=== PATIENT | female | born 1955 | race Caucasian/White ===

== ENCOUNTER 2020-05-29 20:29 | Inpatient (IN) ==
[~2020-05-29] VITALS: Ht 167.6 cm; Wt 94.8 kg
[~2020-05-29 20:29] MED LIST: HYDR200T72 PO; LEVO112T5 PO; PRED5TAB17 PO
[2020-05-29] MEDS ORDERED: ZOFRAN IV STA (20:41)
[2020-05-29] MEDS ORDERED: LOMOTIL PO STA (20:41)
[2020-05-29] MEDS ORDERED: NS 1000ML 1,000 ML IV STA (20:41)
--- NOTE | 2020-05-29 20:48 | ER.PDOC ---
General Chief Complaint: Requesting Medical Care Stated Complaint: RESP DISTRESS Time seen by MD: 20:41 Source: patient, EMS Exam Limitations: no limitations History of Present Illness Initial Comments Patient diagnosed with COVID19 this week. Today she has felt increasingly SOB and had n/v/d. Subjective fever at home as well. Timing/Duration: 1 week (progressively worsening) Severity: moderate Activities at Onset: rest Prior Episodes/Possible Cause: illness exposure (patient tested + for COVID 19 this week) Associated Symptoms: cough, other (nausea, vomiting, diarrhea) Prior symptoms/Treatment: Recenly Seen Allergies: Coded Allergies: clindamycin (Verified Allergy, Unknown, RED RASH, 01/02/16) Home Meds Reported Medications Levothyroxine Sodium (LEVOTHYROXINE SODIUM) 112 Mcg Tablet, 1 TAB PO DAILY, #30 TAB 5 Refills 01/02/16 Hydroxychloroquine Sulfate (PLAQUENIL) 200 Mg Tablet, 200 MG PO BID, TABLET 01/02/16 Prednisone (PREDNISONE) 5 Mg Tab.ds.pk, 5 MG PO DAILY 01/02/16 Past Medical History Medical History: other (rheumatoid arthritis) Surgical History: cholecystectomy, hysterectomy Family History Significant Family History: no pertinent family hx Social History Smoking: non-smoker Alcohol Use: none Drug Use: none Review of Systems Constitutional: fever, malaise EENTM: no symptoms reported Respiratory: cough, shortness of breath Cardiovascular: no symptoms reported Gastrointestinal: diarrhea, nausea, vomiting Genitourinary: no symptoms reported Musculoskeletal: no symptoms reported Skin: no symptoms reported Psychiatric/Neurological: no symptoms reported Endocrine: no symptoms reported Hematologic/Lymphatic: no symptoms reported All Other Systems: Reviewed and Negative Physical Exam General Appearance: Mild Distress (patient arrives by EMS covered in feces from watery stool enroute) HEENT: PERRL/EOMI, Normal ENT Inspection Neck: Non-Tender, Full Range of Motion, Supple (no meningismus) Respiratory: no accessory muscle use, rhonchi, other (tachypnea 34 Resp per minute) Cardiovascular: Regular Rate, Rhythm (93 BPM), No Murmur Gastrointestinal: Non Tender, Hyperactive bowel sounds, Soft Extremities: No Pedal Edema, No Calf Tenderness Neurologic/Psychiatric: Alert, Normal Mood/Affect, Oriented x 3 Skin: Normal Color, Warm/Dry Lymphatic: No Adenopathy Results/Orders Results/Orders Orders - HAIR,MICHELLE O DO Cbc With Auto Diff (05/29/20 20:41) Comprehensive Metabolic Panel (05/29/20 20:41) Creatine Kinase (05/29/20 20:41) Creatine Kinase Mb (05/29/20 20:41) Probnp B-Type [employer] Press Operator (05/29/20 20:41) Troponin I (05/29/20 20:41) D-Dimer (05/29/20 20:41) Blood Culture (05/29/20 20:41) Xr Chest 1v (05/29/20 20:41) PT (05/29/20 20:41) Partial Thromboplastin Time. (05/29/20 20:41) Ekg-Routine (05/29/20 20:41) Saline Lock (05/29/20 20:41) Ferritin(Ml) (05/29/20 20:41) Lactate Dehydrogenase (05/29/20 20:41) C-Reactive Protein (05/29/20 20:41) Lactic Acid(Ml) (05/29/20 20:41) 0.9 % Sodium Chloride (Ns 1000ml) (05/29/20 20:41) Diphenoxylate Hcl/Atropine (Lomotil) (05/29/20 20:41) Ondansetron Hcl/Pf (Zofran) (05/29/20 20:41) Venous Blood Gas (05/29/20 21:58) Vital Signs Date Time Temp Pulse Resp B/P (MAP) Pulse Ox O2 Delivery O2 Flow Rate FiO2 05/29/20 22:00 100.2 92 20 107/55 (72) 97 Nasal Canula 3.00 05/29/20 20:52 100.2 98 20 97 05/29/20 20:52 100.2 98 20 05/29/20 20:52 100.2 98 20 110/74 (86) 97 Nasal Canula 3.00 Administered Medications Medications (Trade) Dose Ordered Sig/Ihsan Route PRN Reason Start Time Stop Time Status Last Admin Dose Admin Diphenoxylate HCl/ Atropine (Lomotil) 2 each STAT STAT PO 05/29/20 20:41 05/29/20 20:42 UNV 05/29/20 21:32 2 EACH Ondansetron HCl (Zofran) 4 mg STAT STAT IV 05/29/20 20:41 05/29/20 20:42 UNV 05/29/20 21:32 4 MG Sodium Chloride 1,000 ml @ 1,200 mls/hr Q50M STAT IV 05/29/20 20:41 05/29/20 21:30 UNV 05/29/20 21:32 1,200 MLS/HR Laboratory Tests Test 05/29/20 21:00 White Blood Count 2.9 10^3/uL (4.5-11.0) L Red Blood Count 4.70 10^6/uL (4.00-5.20) Hemoglobin 14.5 g/dL (12.0-15.0) Hematocrit 42.6 % (36.0-46.0) Mean Corpuscular Volume 90.6 fL (78-100) Mean Corpuscular Hemoglobin 30.9 pg (26-34) Mean Corpuscular Hemoglobin Concent 34.0 g/dL (33-36.5) Red Cell Distribution Width 14.1 % (11.5-14.5) Platelet Count 153 10^3/uL (150-400) Mean Platelet Volume 10.2 fL (7.8-11.0) Neutrophils (%) (Auto) 76.2 % (41.0-85.0) Lymphocytes (%) (Auto) 10.2 % (24.0-44.0) L Monocytes (%) (Auto) 11.9 % (5.0-12.0) Neutrophils # (Auto) 2.2 10^3/uL (1.8-7.7) Lymphocytes # (Auto) 0.30 10^3/uL1 (1.0-4.8) L Monocytes # (Auto) 0.4 10^3/uL (0.3-0.8) Absolute Immature Granulocyte (auto 0.03 10^3 u/L (0-2) Absolute Eosinophils (auto) 0.0 10^3/uL (0.0-0.2) Immature Granulocytes % 1.00 % (0.00-0.50) H Eosinophils % 0.0 % (0.0-5.0) Basophils % 0.7 % (0.0-0.2) H Basophils # 0.0 10^3/uL (0.0-0.1) Prothrombin Time 20.6 SEC (9.3-11.3) H Prothrombin Time INR (Non-Therap) 2.0 Activated Partial Thromboplast Time 24.5 SEC (24.67-30.72) D-Dimer 1.69 mg/L (0.19-0.49) *H Sodium Level 136 mmol/L (132-145) Potassium Level 3.9 mmol/L (3.6-5.2) Chloride Level 102.0 mmol/L (96-109) Carbon Dioxide Level 22.7 mmol/L (20.0-32) Anion Gap 15.2 Blood Urea Nitrogen 23 mg/dL (7-18) H Creatinine 1.02 mg/dL (0.59-1.40) Estimated GFR () 65.6 (>/=60) Est GFR (CKD-EPI)(Non-Afr [place]an) 54.2 (>/=60) BUN/Creatinine Ratio 22.0 Glucose Level 85 mg/dL (70-110) Lactic Acid Level 1.3 mmol/L (0.5-1.9) Calcium Level 8.6 mg/dL (8.4-10.5) Ferritin 860 ng/mL (8-252) H Total Bilirubin 0.8 mg/dL (0.2-1.0) Aspartate Amino Transferase (AST) 59 U/L (0-35) H Alanine Aminotransferase (ALT) 29 U/L (12-78) Alkaline Phosphatase 73 U/L (50-136) Lactate Dehydrogenase 409 U/L (81-234) H Total Creatine Kinase 112 U/L (26-192) Creatine Kinase MB 1.5 ng/mL (0.5-3.6) Troponin I 0.17 ng/mL (0.00-0.05) H C-Reactive Protein 1.63 mg/dL (0.00-5.00) Pro-B-Type Natriuretic Peptide 1435 pg/mL (0-125) H Total Protein 6.8 g/dL (6.4-8.2) Albumin 3.2 g/dL (3.4-5.0) L Globulin 3.6 Albumin/Globulin Ratio 0.888 Progress Progress EKG: NSR, Ventricular rate 97, RBBB, LAFB, QT 406, No STT changes WBC reduced 2.9, Lactate WNL, LDH 409, Ferritin 860, BNP 1435, Trop 0.17, CRP 1.63 Patient has not c/o any chest discomfort--I believe her troponin elevation is a reflection of COVID19 disease marker (see ncbi.nlm.nih.gov/pmc/articles) Consult/PCP Time Consult/PCP Called: 22:36 Consult/PCP: DR. Ortega Reason/Comments: will admit ER DEPART Departure Time of Disposition: 22:39 Disposition: 09 ADMITTED INPATIENT Impression: Primary Impression: 2019 novel coronavirus disease (COVID-19) Additional Impressions: Hypoxia Diarrhea Elevated troponin I level Condition: Improved Referrals: [facility] (PCP) PRIMARY CARE PROVIDER Duration or Time Spent with Pa: 25 min Problem Qualifiers Additional Impressions: Diarrhea Diarrhea type: unspecified type Qualified Codes: R19.7 - Diarrhea, unspecified MICHELLE HAIR DO May 29, 2020 20:48
[2020-05-29 20:52] VITALS: BP 110/74
[2020-05-29 22:00] VITALS: BP 107/55
--- NOTE | 2020-05-29 22:06 | PCM.EKG ---
[facility] Test Date: 2020-05-29 Test Time: 21:45:53 Pat Name: DOTTIE LAI Department: Room: 304 Gender: F Forge Operator: TG : [id number] Requested By: MICHELLE ALMENDAREZ Order Number: [id number] Reading MD: Eusebia Almendarez Measurements Intervals [place] Rate: 97 P: 34 DC: 180 QRS: -52 QRSD: 128 T: QT: 406 QTc: 516 Interpretive Statements Sinus rhythm Atrial premature complex RBBB and LAFB Nonspecific T abnormalities, lateral leads Compared to ECG 07/18/2018 11:27:22 Atrial premature complex(es) now present Left anterior fascicular block now present Right bundle-branch block now present Left-axis deviation no longer present T-wave abnormality still present Electronically Signed On 05-30-2020 19:08:51 CDT by Eusebia Almendarez Please click the below link to view image of tracing.
[2020-05-29 22:11] LABS: CALCIUM 8.6 mg/dL (8.4-10.5); CARBON DIOXIDE 22.7 mmol/L (20.0-32)
--- NOTE | 2020-05-29 22:16 | NUR ---
D-DIMER 1.69, EDP NOTIFIED
[2020-05-29 22:17] LABS: BASOPHIL % 0.7 % (0.0-0.2); LYMPHOCYTES % 10.2 % (24.0-44.0); MEAN CORP HGB 30.9 pg (26-34); MONOCYTES # 0.4 10^3/uL (0.3-0.8); MONOCYTES % 11.9 % (5.0-12.0); NEUTROPHIL # 2.2 10^3/uL (1.8-7.7); NEUTROPHILS % 76.2 % (41.0-85.0); PLATELET COUNT 153 10^3/uL (150-400); RED CELL DISTRIBUTION WIDTH 14.1 % (11.5-14.5)
[2020-05-29] MEDS ORDERED: ROCEPHIN ONE (22:40)
[2020-05-29] MEDS ORDERED: SOLU-MEDROL ONE (22:40)
[2020-05-29] MEDS ORDERED: SOLU-MEDROL IV STA (22:43)
[2020-05-29] MEDS: ROCEPHIN 1,000 MG in NS 100ML 100 ML IV SCH (22:57)
[2020-05-29 23:00] VITALS: BP 122/69
[2020-05-29] MEDS ORDERED: LOMOTIL PO PRN (23:00)
[2020-05-29] MEDS ORDERED: ZOFRAN IV PRN (23:00)
[2020-05-29 23:20] VITALS: BP 107/74
--- NOTE | 2020-05-29 23:40 | NUR ---
Received pt from the ED via stretcher. Assisted pt over to the bed. Pt complaining of generalized pain. Obtained order for Tylenol 1 gram every 6 hours as needed for pain and temp. Pt received Tylenol for generalized pain and temp 100.6. Admission completed. Pt's needs were met. Will cont to monitor.
[2020-05-30] MEDS ORDERED: BICILLIN L-A IM ONE (00:37)
[2020-05-30] MEDS: TYLENOL PO PRN ×2 (00:40→18:06)
[2020-05-30 04:00] VITALS: BP 121/85
--- NOTE | 2020-05-30 04:08 | DIREP ---
PROCEDURE:CHEST 1 VIEW COMPARISON:[facility], CR, XRAY CHEST SINGLE VW, 07/18/2018, 11:00 AM. INDICATIONS:dyspnea FINDINGS: LUNGS/PLEURA:Mild reticulonodular opacities in the bilateral upper lobes, which may be secondary to mild infectious or inflammatory pneumonitis. No dense airspace consolidation. No pleural effusion or pneumothorax. Stable mild elevation of the right hemidiaphragm. VASCULATURE:Normal. Unremarkable pulmonary vasculature. CARDIAC:Heart size is normal. MEDIASTINUM:Normal. No visible mass or adenopathy. BONES:Stable remote, healed, left-sided rib fractures. Stable degenerative changes involving the shoulders and thoracic spine. No acute abnormality. OTHER:Stable surgical clips in the right upper quadrant. CONCLUSION: 1. Mild reticulonodular opacities in the bilateral upper lobes, suggestive of mild infectious or inflammatory pneumonitis. No dense airspace consolidation. 2. Additional chronic findings, as above. Dictated by: Aneudy Dunn MD on 05/30/2020 at 04:06 AM
[2020-05-30] MEDS ORDERED: SOLU-MEDROL IV SCH (06:00)
[2020-05-30 06:10] LABS: LYMPHOCYTES % 11.6 % (24.0-44.0); MEAN CORP HGB 31.3 pg (26-34); MONOCYTES # 0.1 10^3/uL (0.3-0.8); MONOCYTES % 2.9 % (5.0-12.0); NEUTROPHIL # 1.5 10^3/uL (1.8-7.7); NEUTROPHILS % 85.5 % (41.0-85.0); PLATELET COUNT 131 10^3/uL (150-400)
[2020-05-30 06:23] LABS: CALCIUM 7.6 mg/dL (8.4-10.5); CARBON DIOXIDE 20.8 mmol/L (20.0-32)
[2020-05-30] MEDS ORDERED: ATROVENT IH PRN (07:30)
[2020-05-30] MEDS ORDERED: VENTOLIN HFA IH PRN (07:30)
[2020-05-30 08:58] VITALS: BP 130/80
[2020-05-30] MEDS ORDERED: DECADRON IV SCH (09:00)
[2020-05-30] MEDS: SYMBICORT 160-4.5 MCG INHALER IH SCH ×2 (09:00→21:00)
[2020-05-30] MEDS: DECADRON IV SCH (09:27)
[2020-05-30] MEDS: ASPIRIN EC PO SCH (09:27)
[2020-05-30] MEDS: ZITHROMAX 500 MG in NS 250ML 250 ML IV SCH (09:28)
[2020-05-30] MEDS ORDERED: NS 1000ML 1,000 ML ONE (09:32)
[2020-05-30 12:24] VITALS: BP 125/78
--- NOTE | 2020-05-30 14:05 | PCM.HP ---
History of Present Illness Reason for Visit: (1) Sepsis without septic shock ICD Code: A41.9 - Sepsis, unspecified organism SNOMED: 793252726 Was this Problem Present on Ad: Yes-DX present @time ofIP (2) Pneumonia ICD Code: J18.9 - Pneumonia, unspecified organism SNOMED: 866059109 Was this Problem Present on Ad: Yes-DX present @time ofIP (3) Acute respiratory failure with hypoxemia ICD Code: J96.01 - Acute respiratory failure with hypoxia SNOMED: 514294938 Was this Problem Present on Ad: Yes-DX present @time ofIP (4) Gastroenteritis and colitis, viral ICD Code: A08.4 - Viral intestinal infection, unspecified SNOMED: 738455106 Was this Problem Present on Ad: Yes-DX present @time ofIP (5) Leukopenia ICD Code: D72.819 - Decreased white blood cell count, unspecified SNOMED: 83607345, 359756378 Was this Problem Present on Ad: Yes-DX present @time ofIP (6) Diarrhea ICD Code: R19.7 - Diarrhea, unspecified SNOMED: 34437285 Was this Problem Present on Ad: Yes-DX present @time ofIP (7) 2019 novel coronavirus disease (COVID-19) ICD Code: U07.1 - COVID-19 SNOMED: 777407764 Was this Problem Present on Ad: Yes-DX present @time ofIP Hx of Present Illness Patient is a 65 yo F who was tested positive for COVID-19 a week ago but worsened with symptoms of severe shortness of breath, nausea and vomiting and diarrhea for 2 days along with fever presented to the ED requiring oxygen. At ED noted to have leukopenia of 2.6 wbc, and chest xr reports finding consistent with PNA ground glass opacities. Findings were more consistent with sepsis. Blood cultures were obtained and patient was started on IV abx. She was placed on oxygen and improved and admitted to the medical floor for further evaluation and management. Travel History [place]OL[place] RISK:Travel to/contact w: No Review of Systems Constitutional: Fever, Chills, Weakness, Malaise; No: Sweats Eyes: No: Pain, Vision change, Conjunctivae inflammation, Eyelid inflammation, Redness ENT: No: Ear pain, Ear discharge, Nose pain, Nose discharge, Nose congestion, Mouth pain, Mouth swelling, Throat pain, Throat swelling Respiratory: Cough, Shortness of breath, SOB with excertion, Wheezing; No: Dry, Hemoptysis, Pleuritic Pain, Sputum, Wheezing Cardiovascular: No: Chest Pain, Palpitations, Orthopnea, Paroxysmal Noc. Dyspnea, Edema, Lt Headedness Gastrointestinal: Nausea, Vomiting, Abdominal Pain, Diarrhea; No: Constipation, Melena, Hematochezia Genitourinary: No Dysuria, No Frequency, No Incontinence, No Hematuria, No Retention, No Other Musculoskeletal: No: neck pain, shoulder pain, arm pain, back pain, hand pain, leg pain, foot pain Skin: No: Rash, Lesions, Jaundice, Bruising Neurological: Weakness; No: Numbness, Incoordination, Change in speech, Confusion, Seizures Allergies: Coded Allergies: clindamycin (Verified Allergy, Unknown, RED RASH, 01/02/16) Scheduled Hydroxychloroquine Sulfate (Plaquenil), 200 MG PO BID, (Reported) Levothyroxine Sodium (Levothyroxine Sodium), 1 TAB PO DAILY, (Reported) Prednisone (Prednisone), 5 MG PO DAILY, (Reported) VTE VTE Risk Total Score: 2 VTE Risk Score VTE Risk: Score 0-1 = Low Risk (Aggressive mobilization; early ambulation; no VTE prophylaxis required) Score 2: Moderate Risk (Intermittent/Pneumatic Compression Device OR Lovenox/Heparin/Coumadin) Score 3-4: High Risk (Intermittent/Pneumatic Compression Device AND Lovenox/Heparin/Coumadin) Score > or =5: Highest Risk (Intermittent/Pneumatic Compression Device AND Lovenox/Heparin/Coumadin) VTE VTE Present on Admission: No Currently receiving anticoagul: No VTE Risk Total Score: 2 Exam Vital Signs Vital Signs Date Time Temp Pulse Resp B/P (MAP) Pulse Ox O2 Delivery O2 Flow Rate FiO2 05/30/20 12:24 97.8 71 16 125/78 (94) 94 Nasal Canula 3.00 General Appearance: Alert, Oriented X3, Cooperative, mild distress HEENT: Atraumatic, PERRLA, EOMI, Mucous membr. moist/pink Respiratory: Normal air movement Cardiovascular: Regular rate, Normal S1, Normal S2, No murmurs Abdominal: Normal bowel sounds, Soft, No hepatospenomegaly, No masses, Other (abdominal pain and tenderness on palpation) Extremities: No clubbing, No cyanosis, No edema, Normal pulses, No tenderness/swelling Skin: No rash, No breakdown, No lesions Neuro: Normal gait, Normal speech, Strength at 5/5 X4 ext, Normal tone, Sensation intact, Cranial nerves 3-12 NL, Reflexes 2+ Psych/Mental Status: Mental status NL, Mood NL Assessment/Plan Assessment/Plan Problems: (1) Sepsis without septic shock Status: Acute Assessment & Plan: Presented with fever, acute respiratory failure hypoxia Tachycardia and elevated lactic acid. Blood culture pending Continue with IV antibiotic including azithromycin and Rocephin Likely due to pneumonia evident on chest x-ray likely from COVID-19 infection and community-acquired pneumonia of bacterial. ICD Code: A41.9 - Sepsis, unspecified organism SNOMED: 324904703 (2) Pneumonia Status: Acute Assessment & Plan: Evident on chest x-ray likely due to COVID-19 or bacterial pneumonia Continue IV antibiotic and start patient on antiviral medication Blood culture pending ICD Code: J18.9 - Pneumonia, unspecified organism SNOMED: 459084985 (3) Acute respiratory failure with hypoxemia Status: Acute Assessment & Plan: Continue with oxygen support Currently on 3 L satting 92 to 95% Likely due to lung infection/pneumonia/COVID-19 infection Presented with shortness of breath and hypoxemia requiring oxygen to maintain appropriate oxygenation. ICD Code: J96.01 - Acute respiratory failure with hypoxia SNOMED: 561137631 (4) Gastroenteritis and colitis, viral Status: Acute Assessment & Plan: Likely due to COVID-19 infection to the GI tract Presented with nausea and vomiting and persistent diarrhea. Patient was recently tested positive for COVID-19 about a week ago. Continue IV antibiotic and antiviral medication. ICD Code: A08.4 - Viral intestinal infection, unspecified SNOMED: 529319428 (5) Diarrhea Status: Acute ICD Code: R19.7 - Diarrhea, unspecified SNOMED: 24881279 (6) Elevated troponin I level Status: Acute Assessment & Plan: Likely due to ischemic demand without NH Continue anticoagulation Continue with serial cardiac enzymes and reevaluate. Consult cardiology if continues to elevate. Denies any chest pain at this time. ICD Code: R79.89 - Other specified abnormal findings of blood chemistry SNOMED: 969927514 (7) Leukopenia Status: Acute Assessment & Plan: Likely due to viral infection We will reevaluate. Antiviral medication started. ICD Code: D72.819 - Decreased white blood cell count, unspecified SNOMED: 71170794, 429992104 (8) 2019 novel coronavirus disease (COVID-19) Status: Acute Assessment & Plan: Patient was recently tested positive for COVID-19 infection about a week ago but was sent home because she was doing well at that time. ICD Code: U07.1 - COVID-19 SNOMED: 770759468 (9) Rheumatoid arthritis Status: Chronic Assessment & Plan: Continue with home dose medication for pain control. ICD Code: M06.9 - Rheumatoid arthritis, unspecified SNOMED: 32206114 (10) Elevated d-dimer Status: Acute Assessment & Plan: Likely due to COVID-19 infection We will manage underlying cause and anticipate for CT PE if patient persist with shortness of breath and tachycardia. ICD Code: R79.89 - Other specified abnormal findings of blood chemistry SNOMED: 753244060 Patient History: Asthma 19 CHILD Cerebrovascular disorder 33 FATHER, , Age:79 Congestive heart failure 32 MOTHER, , Age:83 Diabetes mellitus 32 MOTHER, , Age:83 FH: dementia 32 MOTHER, , Age:83 Hypertension 32 MOTHER, , Age:83 33 FATHER, , Age:79 No known health problems G8 BROTHER G8 BROTHER, , Age:40's - 50 G8 SISTER 19 CHILD Parkinson's disease MATERNAL GRANDFATHER, Problem Qualifiers (1) Leukopenia: Leukopenia type: lymphocytopenia Qualified Codes: D72.810 - Lymphocytopenia (2) Diarrhea: Diarrhea type: infectious Qualified Codes: A09 - Infectious gastroenteritis and colitis, unspecified (3) Rheumatoid arthritis: Rheumatoid arthritis location: multiple sites RICH LEDEZMA MD May 30, 2020 14:05
[2020-05-30 14:54] LABS: SEGMENTED NEUTROPHILS 88 % (31-76)
[2020-05-30 14:55] LABS: DIFFERENTIAL COMMENT NORMAL; LYMPHOCYTE 11 % (25-36); MONOCYTE 1 % (3-9)
[2020-05-30] MEDS: LOVENOX SQ SCH (15:41)
[2020-05-30 17:07] VITALS: BP 122/71
[2020-05-30 20:00] VITALS: BP 128/95
[2020-05-30] MEDS: ROCEPHIN 1,000 MG in NS 100ML 100 ML IV SCH (22:21)
[2020-05-31] VITALS (7 sets, daily range): BP systolic 134–151; BP diastolic 78–100
[2020-05-31 05:21] LABS: LYMPHOCYTES # 0.34 10^3/uL1 (1.0-4.8); MEAN CORP HGB 31.3 pg (26-34); MONOCYTES # 0.2 10^3/uL (0.3-0.8); MONOCYTES % 8.5 % (5.0-12.0); NEUTROPHIL # 2.2 10^3/uL (1.8-7.7); NEUTROPHILS % 78.8 % (41.0-85.0); PLATELET COUNT 132 10^3/uL (150-400)
[2020-05-31 05:44] LABS: CALCIUM 7.6 mg/dL (8.4-10.5); CARBON DIOXIDE 20.6 mmol/L (20.0-32)
[2020-05-31] MEDS: TYLENOL PO PRN ×2 (06:21→12:37)
[2020-05-31] MEDS ORDERED: NS 250ML 250 ML IV ONE (08:18)
[2020-05-31] MEDS: SYMBICORT 160-4.5 MCG INHALER IH SCH ×2 (08:32→21:00)
[2020-05-31] MEDS: ASPIRIN EC PO SCH (09:00)
[2020-05-31] MEDS: ZITHROMAX 500 MG in NS 250ML 250 ML IV SCH (09:00)
[2020-05-31] MEDS: DECADRON IV SCH (09:00)
[2020-05-31] MEDS: LOVENOX SQ SCH (15:43)
--- NOTE | 2020-05-31 17:17 | PRM.PN ---
Subjective Subjective Date: May 31, 2020 Time: 07:30 Subjective Patient is seen and examined this morning laying in bed confortably says she is hungry and would like to eat something not jello. Deneis fever or chills. Patient History: Asthma 18 CHILD Cerebrovascular disorder 33 FATHER, , Age:79 Congestive heart failure 32 MOTHER, , Age:83 Diabetes mellitus 32 MOTHER, , Age:83 FH: dementia 32 MOTHER, , Age:83 Hypertension 32 MOTHER, , Age:83 33 FATHER, , Age:79 No known health problems G8 BROTHER G8 BROTHER, , Age:40's - 50 G8 SISTER 19 CHILD Parkinson's disease MATERNAL GRANDFATHER, VTE VTE Risk Total Score: 2 VTE Risk Score VTE Risk: Score 0-1 = Low Risk (Aggressive mobilization; early ambulation; no VTE prophylaxis required) Score 2: Moderate Risk (Intermittent/Pneumatic Compression Device OR Lovenox/Heparin/Coumadin) Score 3-4: High Risk (Intermittent/Pneumatic Compression Device AND Lovenox/Heparin/Coumadin) Score > or =5: Highest Risk (Intermittent/Pneumatic Compression Device AND Lovenox/Heparin/Coumadin) Review of Systems Constitutional: Fever, Chills, Weakness, Malaise; No: Sweats Eyes: No: Pain, Vision change, Conjunctivae inflammation, Eyelid inflammation, Redness ENT: No: Ear pain, Ear discharge, Nose pain, Nose discharge, Nose congestion, Mouth pain, Mouth swelling, Throat pain, Throat swelling Respiratory: Cough, Shortness of breath, SOB with excertion, Wheezing; No: Dry, Hemoptysis, Pleuritic Pain, Sputum, Wheezing Cardiovascular: No: Chest Pain, Palpitations, Orthopnea, Paroxysmal Noc. Dyspnea, Edema, Lt Headedness Gastrointestinal: Nausea, Vomiting, Abdominal Pain, Diarrhea; No: Constipation, Melena, Hematochezia Genitourinary: No Dysuria, No Frequency, No Incontinence, No Hematuria, No Retention, No Other Musculoskeletal: No: neck pain, shoulder pain, arm pain, back pain, hand pain, leg pain, foot pain Skin: No: Rash, Lesions, Jaundice, Bruising Neurological: Weakness; No: Numbness, Incoordination, Change in speech, Confusion, Seizures Allergies: Coded Allergies: clindamycin (Verified Allergy, Unknown, RED RASH, 01/02/16) Scheduled Hydroxychloroquine Sulfate (Plaquenil), 200 MG PO BID, (Reported) Levothyroxine Sodium (Levothyroxine Sodium), 1 TAB PO DAILY, (Reported) Prednisone (Prednisone), 5 MG PO DAILY, (Reported) Objective Vitals and I/O Vital Sign - Last 24 Hours 05/30/20 05/30/20 05/30/20 05/31/20 20:00 20:00 23:59 00:00 Temp 97.5 97.6 Pulse 68 68 74 Resp 16 16 16 B/P (MAP) 128/95 (106) 134/78 (96) Pulse Ox 94 94 92 O2 Delivery Nasal Cannula Nasal Canula Nasal Cannula Nasal Canula O2 Flow Rate 3.00 3.00 3.00 3.00 05/31/20 05/31/20 05/31/20 05/31/20 05:03 07:12 08:00 09:10 Temp 97.6 96.3 96.2 Pulse 66 65 66 Resp 16 24 24 B/P (MAP) 146/82 (103) 148/100 (116) 140/94 (109) Pulse Ox 92 91 92 O2 Delivery Nasal Canula Nasal Canula Nasal Canula Nasal Cannula O2 Flow Rate 3.00 3.00 3.00 3.00 05/31/20 15:25 Pulse 66 Resp 24 Pulse Ox 92 O2 Delivery Nasal Cannula O2 Flow Rate 3.00 FiO2 32 Intake and Output 05/31/20 07:00 Intake Total 892 ml Output Total 700 ml Balance 192 ml General: Alert, Oriented X3, Cooperative, mild distress HEENT: Atraumatic, PERRLA, EOMI, Mucous membr. moist/pink Lungs: Normal air movement Heart: Regular rate, Normal S1, Normal S2, No murmurs Abdomen: Normal bowel sounds, Soft, No hepatospenomegaly, No masses, Other (abdominal pain and tenderness on palpation) Extremities: No clubbing, No cyanosis, No edema, Normal pulses, No tenderness/swelling Neuro: Normal gait, Normal speech, Strength at 5/5 X4 ext, Normal tone, Sensation intact, Cranial nerves 3-12 NL, Reflexes 2+ Psych/Mental Status: Mental status NL, Mood NL All Results(Lab/Rad) Laboratory Tests Test 05/31/20 05:10 White Blood Count 2.8 10^3/uL Red Blood Count 3.99 10^6/uL Hemoglobin 12.5 g/dL Hematocrit 37.2 % Mean Corpuscular Volume 93.2 fL Mean Corpuscular Hemoglobin 31.3 pg Mean Corpuscular Hemoglobin Concent 33.6 g/dL Red Cell Distribution Width 14.0 % Platelet Count 132 10^3/uL Mean Platelet Volume 10.2 fL Neutrophils (%) (Auto) 78.8 % Lymphocytes (%) (Auto) 12.0 % Monocytes (%) (Auto) 8.5 % Neutrophils # (Auto) 2.2 10^3/uL Lymphocytes # (Auto) 0.34 10^3/uL1 Monocytes # (Auto) 0.2 10^3/uL Absolute Immature Granulocyte (auto 0.02 10^3 u/L Absolute Eosinophils (auto) 0.0 10^3/uL Immature Granulocytes % 0.70 % Eosinophils % 0.0 % Basophils % 0.0 % Basophils # 0.0 10^3/uL Sodium Level 143 mmol/L Potassium Level 4.3 mmol/L Chloride Level 110.0 mmol/L Carbon Dioxide Level 20.6 mmol/L Anion Gap 16.7 Blood Urea Nitrogen 26 mg/dL Creatinine 1.23 mg/dL Estimated GFR () 52.9 Est GFR (CKD-EPI)(Non-Afr Iranian) 43.7 BUN/Creatinine Ratio 21.0 Glucose Level 125 mg/dL Calcium Level 7.6 mg/dL Total Bilirubin 0.4 mg/dL Aspartate Amino Transf (AST/SGOT) 49 U/L Alanine Aminotransferase (ALT/SGPT) 21 U/L Alkaline Phosphatase 54 U/L C-Reactive Protein 0.89 mg/dL Total Protein 5.5 g/dL Albumin 2.4 g/dL Globulin 3.1 Albumin/Globulin Ratio 0.774 Current Medications Medications (Trade) Dose Ordered Sig/Ihsan Route PRN Reason Start Time Stop Time Status Last Admin Dose Admin Sodium Chloride 1,000 ml @ 1,200 mls/hr Q50M STAT IV 05/29/20 20:41 05/29/20 23:15 DC 05/29/20 21:32 Diphenoxylate HCl/ Atropine (Lomotil) 2 each STAT STAT PO 05/29/20 20:41 05/29/20 23:15 DC 05/29/20 21:32 Ondansetron HCl (Zofran) 4 mg STAT STAT IV 05/29/20 20:41 05/29/20 23:15 DC 05/29/20 21:32 Methylprednisolone Sodium Succinate (Solu-Medrol) 125 mg STK-MED ONCE .ROUTE 05/29/20 22:40 05/29/20 22:42 DC Ceftriaxone Sodium (Rocephin) 1,000 mg STK-MED ONCE .ROUTE 05/29/20 22:40 05/29/20 22:42 DC Aspirin (Aspirin Ec) 81 mg DAILY PO 05/30/20 09:00 06/29/20 08:59 05/31/20 09:00 Ondansetron HCl (Zofran) 4 mg Q4H PRN IV NAUSEA / VOMITING 05/29/20 23:00 06/28/20 22:59 Ceftriaxone Sodium 1000 mg/ Sodium Chloride 100 ml @ 100 mls/hr Q24HRS IV 05/29/20 23:00 06/28/20 22:59 05/30/20 22:21 Methylprednisolone Sodium Succinate (Solu-Medrol) 125 mg STAT STAT IV 05/29/20 22:43 05/29/20 22:48 DC 05/29/20 22:56 Methylprednisolone Sodium Succinate (Solu-Medrol) 60 mg Q8HR IV 05/30/20 06:00 05/30/20 08:27 DC 05/30/20 06:00 Diphenoxylate HCl/ Atropine (Lomotil) 2 each Q6H PRN PO diarrhea 05/29/20 23:00 06/28/20 22:59 Acetaminophen (Tylenol) 1,000 mg Q6HR PRN PO PAIN 1 - 3 05/30/20 00:30 06/29/20 00:29 05/31/20 12:37 Penicillin G Benzathine (Bicillin L-A) 1,200,000 unit STK-MED ONCE IM 05/30/20 00:37 05/30/20 00:40 DC Azithromycin 500 mg/Sodium Chloride 250 ml @ 175 mls/hr Q24HRS IV 05/30/20 09:00 06/29/20 08:59 05/31/20 09:00 Budesonide/ Formoterol Fumarate (Symbicort 160-4.5 Mcg Inhaler) 2 inh BID IH 05/30/20 09:00 06/29/20 08:59 05/31/20 08:32 Ipratropium [place] (Atrovent) 0.5 mg Q4 PRN IH WHEEZING 05/30/20 07:30 05/30/20 11:43 DC Albuterol Sulfate (Ventolin Hfa) 2 inh RTTID PRN IH SHORTNESS OF BREATH 05/30/20 07:30 06/29/20 07:29 Sodium Chloride 1,000 ml @ STK-MED ONCE .ROUTE 05/30/20 09:32 05/30/20 09:35 DC Enoxaparin Sodium (Lovenox) 40 mg Q24HRS SQ 05/30/20 14:30 06/29/20 14:29 05/31/20 15:43 Sodium Chloride 250 ml @ STK-MED ONCE IV 05/31/20 08:18 05/31/20 08:19 DC Course Sepsis Screening Results: Posi: POSITIVE Sepsis Qualifier/Stage: SEPSIS RISK Duration or Total Time Spent w: 25 min Vitals & review Data Vital Sign - Last 24 Hours 05/30/20 05/30/20 05/30/20 05/31/20 20:00 20:00 23:59 00:00 Temp 97.5 97.6 Pulse 68 68 74 Resp 16 16 16 B/P (MAP) 128/95 (106) 134/78 (96) Pulse Ox 94 94 92 O2 Delivery Nasal Cannula Nasal Canula Nasal Cannula Nasal Canula O2 Flow Rate 3.00 3.00 3.00 3.00 05/31/20 05/31/20 05/31/20 05/31/20 05:03 07:12 08:00 09:10 Temp 97.6 96.3 96.2 Pulse 66 65 66 Resp 16 24 24 B/P (MAP) 146/82 (103) 148/100 (116) 140/94 (109) Pulse Ox 92 91 92 O2 Delivery Nasal Canula Nasal Canula Nasal Canula Nasal Cannula O2 Flow Rate 3.00 3.00 3.00 3.00 05/31/20 15:25 Pulse 66 Resp 24 Pulse Ox 92 O2 Delivery Nasal Cannula O2 Flow Rate 3.00 FiO2 32 Intake and Output 05/31/20 07:00 Intake Total 892 ml Output Total 700 ml Balance 192 ml Laboratory Tests Test 05/29/20 21:00 05/29/20 21:58 10/1/20 05:52 05/30/20 06:22 White Blood Count 2.9 10^3/uL 1.7 10^3/uL Red Blood Count 4.70 10^6/uL 4.19 10^6/uL Hemoglobin 14.5 g/dL 13.1 g/dL Hematocrit 42.6 % 38.1 % Mean Corpuscular Volume 90.6 fL 90.9 fL Mean Corpuscular Hemoglobin 30.9 pg 31.3 pg Mean Corpuscular Hemoglobin Concent 34.0 g/dL 34.4 g/dL Red Cell Distribution Width 14.1 % 14.0 % Platelet Count 153 10^3/uL 131 10^3/uL Mean Platelet Volume 10.2 fL 10.1 fL Neutrophils (%) (Auto) 76.2 % 85.5 % Lymphocytes (%) (Auto) 10.2 % 11.6 % Monocytes (%) (Auto) 11.9 % 2.9 % Neutrophils # (Auto) 2.2 10^3/uL 1.5 10^3/uL Lymphocytes # (Auto) 0.30 10^3/uL1 0.20 10^3/uL1 Monocytes # (Auto) 0.4 10^3/uL 0.1 10^3/uL Absolute Immature Granulocyte (auto 0.03 10^3 u/L 0 10^3 u/L Absolute Eosinophils (auto) 0.0 10^3/uL 0.0 10^3/uL Immature Granulocytes % 1.00 % 0.00 % Eosinophils % 0.0 % 0.0 % Basophils % 0.7 % 0.0 % Basophils # 0.0 10^3/uL 0.0 10^3/uL Prothrombin Time 20.6 SEC Prothrombin Time INR (Non-Therap) 2.0 Activated Partial Thromboplast Time 24.5 SEC D-Dimer 1.69 mg/L Sodium Level 136 mmol/L 139 mmol/L Potassium Level 3.9 mmol/L 4.1 mmol/L Chloride Level 102.0 mmol/L 107.0 mmol/L Carbon Dioxide Level 22.7 mmol/L 20.8 mmol/L Anion Gap 15.2 15.3 Blood Urea Nitrogen 23 mg/dL 21 mg/dL Creatinine 1.02 mg/dL 0.96 mg/dL Estimated GFR () 65.6 70.4 Est GFR (CKD-EPI)(Non-Afr Iranian) 54.2 58.1 BUN/Creatinine Ratio 22.0 21.0 Glucose Level 85 mg/dL 122 mg/dL Lactic Acid Level 1.3 mmol/L Calcium Level 8.6 mg/dL 7.6 mg/dL Ferritin 860 ng/mL Total Bilirubin 0.8 mg/dL 0.5 mg/dL Aspartate Amino Transf (AST/SGOT) 59 U/L 46 U/L Alanine Aminotransferase (ALT/SGPT) 29 U/L 22 U/L Alkaline Phosphatase 73 U/L 58 U/L Lactate Dehydrogenase 409 U/L Total Creatine Kinase 112 U/L Creatine Kinase MB 1.5 ng/mL Troponin I 0.17 ng/mL C-Reactive Protein 1.63 mg/dL Pro-B-Type Natriuretic Peptide 1435 pg/mL Total Protein 6.8 g/dL 5.9 g/dL Albumin 3.2 g/dL 2.5 g/dL Globulin 3.6 3.4 Albumin/Globulin Ratio 0.888 0.735 Bedside Blood Gas Site (LAB) VBG O2 Saturation 52.7 Venous Blood pH 7.338 Venous Blood pCO2 at Patient Temp 38.7 MMHG Bedside Venous pO2 30.0 MMHG Venous Blood Base Excess -5.0 Blood Gas Total Hemoglobin 15.2 % Deoxyhemoglobin 46.7 % Carboxyhemoglobin 1.2 % Methemoglobin 0.1 % Total Oxygen Concentration 11.1 % Total Carbon Dioxide 21.5 mmol/L Bicarbonate 20.3 mmol/L Differential Total Cells Counted 100 #CELLS Segmented Neutrophils 88 % Lymphocytes 11 % Monocytes 1 % Differential Comment NORMAL Platelet Estimate ADEQUATE Platelet Morphology NORMAL Blood Morphology Comment NORMAL MORPHOLOGY Test 05/30/20 14:13 05/31/20 05:10 Troponin I 0.14 ng/mL White Blood Count 2.8 10^3/uL Red Blood Count 3.99 10^6/uL Hemoglobin 12.5 g/dL Hematocrit 37.2 % Mean Corpuscular Volume 93.2 fL Mean Corpuscular Hemoglobin 31.3 pg Mean Corpuscular Hemoglobin Concent 33.6 g/dL Red Cell Distribution Width 14.0 % Platelet Count 132 10^3/uL Mean Platelet Volume 10.2 fL Neutrophils (%) (Auto) 78.8 % Lymphocytes (%) (Auto) 12.0 % Monocytes (%) (Auto) 8.5 % Neutrophils # (Auto) 2.2 10^3/uL Lymphocytes # (Auto) 0.34 10^3/uL1 Monocytes # (Auto) 0.2 10^3/uL Absolute Immature Granulocyte (auto 0.02 10^3 u/L Absolute Eosinophils (auto) 0.0 10^3/uL Immature Granulocytes % 0.70 % Eosinophils % 0.0 % Basophils % 0.0 % Basophils # 0.0 10^3/uL Sodium Level 143 mmol/L Potassium Level 4.3 mmol/L Chloride Level 110.0 mmol/L Carbon Dioxide Level 20.6 mmol/L Anion Gap 16.7 Blood Urea Nitrogen 26 mg/dL Creatinine 1.23 mg/dL Estimated GFR () 52.9 Est GFR (CKD-EPI)(Non-Afr Iranian) 43.7 BUN/Creatinine Ratio 21.0 Glucose Level 125 mg/dL Calcium Level 7.6 mg/dL Total Bilirubin 0.4 mg/dL Aspartate Amino Transf (AST/SGOT) 49 U/L Alanine Aminotransferase (ALT/SGPT) 21 U/L Alkaline Phosphatase 54 U/L C-Reactive Protein 0.89 mg/dL Total Protein 5.5 g/dL Albumin 2.4 g/dL Globulin 3.1 Albumin/Globulin Ratio 0.774 Current Medications Medications (Trade) Dose Ordered Sig/Ihsan PRN Reason Start Time Stop Time Status Last Admin Acetaminophen (Tylenol) 1,000 mg Q6HR PRN PAIN 1 - 3 05/30/20 00:30 06/29/20 00:29 05/31/20 12:37 Albuterol Sulfate (Ventolin Hfa) 2 inh RTTID PRN SHORTNESS OF BREATH 05/30/20 07:30 06/29/20 07:29 Aspirin (Aspirin Ec) 81 mg DAILY 05/30/20 09:00 06/29/20 08:59 05/31/20 09:00 Azithromycin 500 mg/Sodium Chloride 250 ml @ 175 mls/hr Q24HRS 05/30/20 09:00 06/29/20 08:59 05/31/20 09:00 Budesonide/ Formoterol Fumarate (Symbicort 160-4.5 Mcg Inhaler) 2 inh BID 05/30/20 09:00 06/29/20 08:59 05/31/20 08:32 Ceftriaxone Sodium 1000 mg/ Sodium Chloride 100 ml @ 100 mls/hr Q24HRS 05/29/20 23:00 06/28/20 22:59 05/30/20 22:21 Diphenoxylate HCl/ Atropine (Lomotil) 2 each Q6H PRN diarrhea 05/29/20 23:00 06/28/20 22:59 Enoxaparin Sodium (Lovenox) 40 mg Q24HRS 05/30/20 14:30 06/29/20 14:29 05/31/20 15:43 Ondansetron HCl (Zofran) 4 mg Q4H PRN NAUSEA / VOMITING 05/29/20 23:00 06/28/20 22:59 Sepsis Infection Criteria Pres: Suspected Infection LEVEL 1 SEPSIS INFECTION CRITE: ABX Therapy Cardiovascular Evidence: Not Assessed or None Hematologic Evidence: None/Not assessed Hepatic Evidence: None/Not assessed Metabolic Evidence: None/Not assessed Neurological Evidence: None/Not assessed Respiratory Evidence: Need for O2 to keep>90% Renal Evidence: None/Not assessed O2 Sat by Pulse Oximetry: 92 Oxygen Flow Rate: 3.00 Assessment/Plan Assessment/Plan Problems: (1) Sepsis without septic shock Status: Acute ICD Code: A41.9 - Sepsis, unspecified organism SNOMED: 976002681 (2) Pneumonia Status: Acute ICD Code: J18.9 - Pneumonia, unspecified organism SNOMED: 906464603 (3) Acute respiratory failure with hypoxemia Status: Acute ICD Code: J96.01 - Acute respiratory failure with hypoxia SNOMED: 466127855 (4) 2019 novel coronavirus disease (COVID-19) Status: Acute ICD Code: U07.1 - COVID-19 SNOMED: 476633338 (5) Elevated troponin I level Status: Acute ICD Code: R79.89 - Other specified abnormal findings of blood chemistry SNOMED: 793304190 (6) Rheumatoid arthritis Status: Chronic ICD Code: M06.9 - Rheumatoid arthritis, unspecified SNOMED: 30867203 (7) Diarrhea Status: Acute ICD Code: R19.7 - Diarrhea, unspecified SNOMED: 71609669 (8) Leukopenia Status: Acute ICD Code: D72.819 - Decreased white blood cell count, unspecified SNOMED: 70079437, 699763538 (9) Gastroenteritis and colitis, viral Status: Acute ICD Code: A08.4 - Viral intestinal infection, unspecified SNOMED: 653629334 (10) Elevated d-dimer Status: Acute ICD Code: R79.89 - Other specified abnormal findings of blood chemistry SNOMED: 381205627 Plan WIll continue treatment with iv abx and remdesivir continue with steroid therapy and oxygen therapy Monitor patient closely leukopenia improving slowly N/V/D improved Problem Qualifiers (1) Rheumatoid arthritis: Rheumatoid arthritis location: multiple sites (2) Diarrhea: Diarrhea type: infectious Qualified Codes: A09 - Infectious gastroenteritis and colitis, unspecified (3) Leukopenia: Leukopenia type: lymphocytopenia Qualified Codes: D72.810 - Lymphocytopenia RICH LEDEZMA MD May 31, 2020 17:16
[2020-05-31] MEDS: MORPHINE SULFATE IV PRN ×2 (17:40→21:31)
[2020-05-31] MEDS: ROCEPHIN 1,000 MG in NS 100ML 100 ML IV SCH (22:41)
[2020-06-01] VITALS (58 sets, daily range): BP systolic 44–164; BP diastolic 30–101
[2020-06-01] MEDS ORDERED: LASIX ONE (03:23)
[2020-06-01] MEDS ORDERED: LASIX IV STA (03:25)
--- NOTE | 2020-06-01 04:16 | NUR ---
BRII, RN CALLED RT DUE TO LOW SAT, INCREASED NC FROM 4LPM TO 6LPM WITH HUMIDITY, PT STILL SATING IN LOW 80'S. PT DID NOT PRESENT WITH SOB OR ANY DISTRESS AT THIS TIME, UNABLE TO MAINTAIN O2 SAT PT BECAME SOB WITH AN INCREASED WOB, SO PLACED PT IN PRONE AND PUT ON NRB MASK, O2 INCREASED TO 90% 15 LPM. PT WAS BECOMING DIAPHORETIC. DR WAS CALLED AND PT WAS MOVED TO A NEGATIVE PRESSURE ROOM DUE TO COVID POSITIVE AND WAS PLACED ON BIPAP AT 0400 20/12/75% WITH A BU RATE OF 12, ALSO ABG WAS OBTAINED AT 0415 AND CALLED BACK TO DR. WILLS WITH RESULTS HE STATED NO CHANGES TO BE MADE AT THIS TIME AND NO REPEAT GAS ORDERED AT THIS TIME. UPON LEAVING ROOM PT APPEARED TO BE IN MINIMAL DISTRESS AND ACKNOWLEDGED SHE FELT BETTER AT THIS TIME RN AT BEDSIDE. MARTHA,ASSIGNMENT DESK EDITOR
[2020-06-01 05:21] LABS: ABG PCO2 27.9 mmHg (35.0-45.0); BE(B) -5.2 mmol/L (-2.0-2.0); HCO3act 17.6 mmol/L (22.0-26.0); pO2 70.5 mmHg (80.0-100.0)
--- NOTE | 2020-06-01 05:30 | NUR ---
patient called had 02 off stated I can't breath informed patient she needed to keep bipap in place , patient stated just put me back on mask , explain difference to patient of bipap , mask , ventilator , rather she wanted to be a full code or no code patient , patient agreed to try bipap once again placed on , also gave patient 2 mg of morphine for respiratory distress, informed respiratory of patient distress , if patient refuses Bipap place on mask and call doctor , at tis time patient is more clam with mask in place well cont to monitor patient
[2020-06-01] MEDS: MORPHINE SULFATE IV PRN (05:33)
--- NOTE | 2020-06-01 06:34 | NUR ---
Pt is on bipap. Pt took off bipap,02 dropped pt became short of breath and refused to have bipap put back on. Pt was educated on the bipap to avoid intubation. Pt agreed to put bipap back on and Morphine given for back pain, Pt's current 02 sat 85% on bipap. Dr Ortega notified. ordered Lovenox based on weight BID.Pt currently resting with eyes closed. Will report off to oncoming shift.
--- NOTE | 2020-06-01 07:30 | NUR ---
STATUS PT SPO2 READING 78% ON BED MAKER. Aleksey CASTILLO RN IN ROOM AND NOTIFIED
[2020-06-01 07:42] LABS: BASOPHIL % 0.1 % (0.0-0.2); LYMPHOCYTES # 0.24 10^3/uL1 (1.0-4.8); LYMPHOCYTES % 2.1 % (24.0-44.0); MEAN CORP HGB 30.9 pg (26-34); MONOCYTES # 0.8 10^3/uL (0.3-0.8); MONOCYTES % 7.4 % (5.0-12.0); NEUTROPHILS % 88.4 % (41.0-85.0); PLATELET COUNT 212 10^3/uL (150-400)
--- NOTE | 2020-06-01 07:45 | NUR ---
RESPIRATORY THERAPY NOTIFIED PATIENT'S BIPAP MASK IS NOT STAYING SEALED AND PATIENT IS D -SATING. WHEN MANUALLY HOLDIN MASK 02 SATS 0RE 90 OR GREATER.
--- NOTE | 2020-06-01 07:50 | NUR ---
UPDATE AT BEDSIDE ATTEMPTING TO KEEP BIPAP MASK SEAL IN ORDER TO ACHIEVE O2 SATS AT 90 OR GREATER. PATIENT'S BREATHING IS LABORED. RR HAVE BEEN 24-26/MIN.
[2020-06-01 07:56] LABS: CALCIUM 8.6 mg/dL (8.4-10.5); CARBON DIOXIDE 23.3 mmol/L (20.0-32)
--- NOTE | 2020-06-01 08:00 | NUR ---
STATUS DR LEDEZMA NOTIFIED OF PTS INCREASED WORK TO BREATH AND CONTINUED DECREASED SPO2. ORDERS RECEIVED FOR CHEST XR AND HE WILL BE RIGHT UP TO SEE PATIENT. ZORAIDA, RT AT BEDSIDE
[2020-06-01] MEDS: SYMBICORT 160-4.5 MCG INHALER IH SCH (08:09)
--- NOTE | 2020-06-01 08:15 | NUR ---
STATUS PT CONTS TO HAVE INCREASED WORK TO BREATH. DR. LEDEZMA STATES TO NOTIFY ANESTHESIA FOR INTUBATION. ZORAIDA, RT STILL AT BEDSIDE. NOTIFIED PATIENT OF NEED FOR INTUBATION. PT REFUSES AT THIS TIME. EDUCATED PT ON RESPIRATORY STATUS AND OUTCOMES. PT STATES SHE WILL LEAVE BIPAP ON. DR LEDEZMA NOTIFIED OF REFUSAL. ORDERS RECEIVED TO TRANSFER PATIENT TO ICU.
[2020-06-01] MEDS ORDERED: XANAX PO STA (08:18)
[2020-06-01 08:30] LABS: BAND NEUTROPHILS 2 % (2-6); SEGMENTED NEUTROPHILS 89 % (31-76)
--- NOTE | 2020-06-01 08:30 | NUR ---
STATUS PT BECOMING INCREASINGLY ANXIOUS AT THIS TIME. NEW ORDERS RECEIVED FOR XANAX 1MG PO X1 DOSE NOW. PULLED AND ADMINISTERED PER ORDERS BY Aleksey CASTILLO RN
[2020-06-01 08:31] LABS: LYMPHOCYTE 2 % (25-36); MONOCYTE 7 % (3-9)
--- NOTE | 2020-06-01 08:35 | NUR ---
TRANSFER PATIENT TRANSFERRED TO ICU VIA HOSPITAL BED.
[2020-06-01] MEDS ORDERED: ATIVAN IV STA (08:58)
[2020-06-01] MEDS ORDERED: LASIX IV SCH (09:00)
[2020-06-01] MEDS ORDERED: LOVENOX SQ SCH (09:00)
[2020-06-01] MEDS: ASPIRIN EC PO SCH (09:00)
--- NOTE | 2020-06-01 09:07 | NUR ---
ANESTHESIA TALHA BORJA PHONE FOR INTUBATION PER DR. ESTRADA AT THIS TIME.
[2020-06-01] MEDS ORDERED: DIPRIVAN 100 ML IV ONE ×2 (09:10→19:14)
[2020-06-01] MEDS ORDERED: LOPRESSER ONE (09:16)
--- NOTE | 2020-06-01 09:16 | DIREP ---
PROCEDURE:CHEST 2 VIEWS COMPARISON:[facility], CR, XRAY CHEST SINGLE VW, 05/29/2020, 09:00 PM. [facility], CT, CT ABD/PELVIS W/ CONTRAST, 06/09/2019, 10:33 AM. [facility], CR, XRAY CHEST SINGLE VW, 07/18/2018, 11:00 AM. INDICATIONS:SHORTNESS OF BREATH FINDINGS: LUNGS/PLEURA:There are multifocal ground-glass opacities in the perihilar and upper lobe regions of both lungs. These are increased since 05/29/2020. No effusions. VASCULATURE:Normal. Unremarkable pulmonary vasculature. CARDIAC:Normal. No cardiac silhouette abnormality or cardiomegaly. MEDIASTINUM:Normal. No visible mass or adenopathy. BONES:Old left rib fractures. OTHER:Negative. CONCLUSION:Increased multifocal ground-glass opacities in the lungs as can be seen in Covid-19. Dictated by: Jono Isidro M.D. on 06/01/2020 at 09:11 AM
--- NOTE | 2020-06-01 09:31 | NUR ---
Intubation 0931- Versed 5mg IV per Dr. Ortega order for intubation 0935- Succinocholine 150mg, RT bagging patient, O2-62%. 0936- Jolanta RT attempted to intubate- failed. RT continued to bag patient. 0938- Jolanta RT attempted to intubate- failed. RT continued to bag patient. 0940- Dr. Ortega at bedside. RT bagging patient. 0942- RT attempted to intubate- failed. Pt O2-53%. RT continued to bag patient. 0945- RT attempted to intubate- failed. Succ 50mg IV given per Dr. Ortega order. 0946- Dr. Ramirez at bedside. 0947- Rocuronium 100mg IV given per DR. Ramirez order. 0949- Dr. Ramirez attempted to intubate- failed. RT continued to bag patient. 0953- Dr. Ramirez attempted to intubate- failed. RT continued to bag patient. O2 at 83%, P-158, BP 165/94. 0956- Versed 5mg IV and Succ 100mg given per DR. Ortega order. 0959- Dr. Ortega attempted to intubate with bougie, failed. 1000- [place] sup notified Tessy PALENCIA to check for stat arrival. 1005- Tessy PALENCIA at bedside. 1006- Tessy PALENCIA attempted to intubate- successful. Color changed noted. Equal chest rise and fall noted and equal bilateral chest sounds. RT bagging patient. O2- 86%, P-158, BP- 141/91. 1010- Propofol started at 50mcg/kg/min by Tessy PALENCIA. 1012- 16 FR OG tube placed by Tessy PALENCIA, placement verified with auscultation. 1016- Fentanyl 100mcg and NS 500ml bolus administered by Tessy PALENCIA. 1030- Dr. Luna at bedside for Central line placement. 1035- Dr. Luna inserted central line to left subclavian, single lumen. right 1042- BP- 96/66, P-87, O2-92% on vent. 1050- Tessy PALENCIA attempted arterial line x7 with same needle.
[2020-06-01] MEDS ORDERED: SUBLIMAZE ONE ×3 (10:11→17:45)
[2020-06-01] MEDS ORDERED: NS 1000ML 1,000 ML ONE ×2 (10:17→21:08)
[2020-06-01] MEDS ORDERED: NS 500ML 500 ML IV ONE (10:22)
[2020-06-01] MEDS ORDERED: SUBLIMAZE IV SCH (10:30)
[2020-06-01] MEDS ORDERED: SUBLIMAZE 1,000 MCG in NS 100ML 80 ML IV SCH (10:30)
[2020-06-01] MEDS ORDERED: NS IV SCH (10:30)
[2020-06-01] MEDS ORDERED: LEVOPHED 8 MG in NS 250ML 250 ML IV SCH (10:30)
[2020-06-01] MEDS ORDERED: VERSED ONE (10:30)
[2020-06-01] MEDS ORDERED: QUELICIN ONE (10:30)
[2020-06-01] MEDS ORDERED: QUELICIN IV ONE (10:30)
[2020-06-01] MEDS ORDERED: LOVENOX SQ STA (10:39)
[2020-06-01] MEDS: DECADRON IV SCH (10:40)
--- NOTE | 2020-06-01 10:50 | NUR ---
Arterial line Arterial line to left radial artery connected to pressure bag of 500cc NS, zeroed to atmospheric pressure and leveled at phlebostatic axis. Accurate waveform that correlates with radial blood pressure cuff pressure. Left arm pink, warm and dry. Radial pulse +2.
[2020-06-01] MEDS ORDERED: REMDESIVIR (EUA) 200 MG in NS 250ML 250 ML IV SCH (11:00)
--- NOTE | 2020-06-01 11:21 | DIREP ---
PROCEDURE:CHEST 1 VIEW COMPARISON:[facility], CR, XRAY CHEST 2 VWS, 06/01/2020, 08:07 AM. INDICATIONS:NG PLACEMENT, ET TUBE PLACEMENT FINDINGS: LUNGS/PLEURA:The ET tube is slightly deep, about 1.8 cm from the lisa. Recommend slight withdrawal. There is mild worsening of the bilateral infiltrates in the lungs. NG tube projects over the esophagus and the tip is identified to be below the left diaphragm, likely in the distal body of the stomach. Gas is distention of the colon identified. VASCULATURE:Obscured by the overlying infiltrates. CARDIAC:Normal. No cardiac silhouette abnormality or cardiomegaly. MEDIASTINUM:Normal. No visible mass or adenopathy. BONES:Normal. No fracture or visible bony lesion. OTHER:Negative. CONCLUSION:NG tube in the distal stomach. Slightly deep placement of the ET tube, recommend slight withdrawal. Marked worsening of the bilateral infiltrates in the lungs since the last study. Differential diagnosis includes worsening pneumonia or worsening viral pneumonia. Gas is distention of the colon. Dictated by: Alberto Kenney MD on 06/01/2020 at 11:18 AM
--- NOTE | 2020-06-01 11:33 | NUR ---
SEVERAL UNSUCCESSFUL INTUBATION ATTEMPTS BY HOSPITALIST DR. WILLS, ER DR. CORDOVA, RESPIRATORY LIANNA AND KASIE. ANATOMY WAS SWOLLEN AND DIFFICULT TO MANUVER TO PLACE TUBE WITH GLIDE SCOPE AND TRADITIONAL INTUBATION. INTUBATION BY JONH PALENCIA WITH AN ASSIST BY BARRETT MILLER. COLOR CHANGE WAS NOTED AND A POST INTUBATION XRAY WAS OBTAINED. SPO2 AT THE TIME OF INTUBATION WAS 82% WITH A HEART RATE OF 152. Addendum: 06/01/20 at 1138 by Jolanta Laguerre RRT RT Amended: Links added. Addendum: 06/01/20 at 1741 by Jolanta Laguerre RRT RT DR. WILLS X 2 ATTEMPTS, DR. CORDOVA X 2, KASIE X2 ATTEMPTS, LIANNA X 2 ATTEMPTS
--- NOTE | 2020-06-01 11:50 | NUR ---
Propofol Propofol off at this time.
--- NOTE | 2020-06-01 11:55 | NUR ---
Levophed & Fentanyl Levophed 2mcg/min started for blood pressure of 76/42 and to titrate per protocol per Dr. Ortega order.
[2020-06-01] MEDS ORDERED: REMDESIVIR IV ONE (12:02)
--- NOTE | 2020-06-01 12:10 | DIREP ---
PROCEDURE:CHEST 1 VIEW COMPARISON:[facility], CR, XRAY CHEST SINGLE VW, 05/29/2020, 09:00 PM. [facility], CR, XRAY CHEST SINGLE VW, 06/01/2020, 09:59 AM. [facility], CR, XRAY CHEST 2 VWS, 06/01/2020, 08:07 AM. [facility], CT, CT ABD/PELVIS W/ CONTRAST, 06/09/2019, 10:33 AM. INDICATIONS:CENTRAL LINE PLACEMENT FINDINGS: LUNGS/PLEURA:Stable ET tube. No pneumothorax. Stable prominent bilateral consolidating infiltrates. VASCULATURE:Normal. Unremarkable pulmonary vasculature. CARDIAC:Normal. No cardiac silhouette abnormality or cardiomegaly. MEDIASTINUM:Normal. No visible mass or adenopathy. BONES:Normal. No fracture or visible bony lesion. OTHER:An apparent central catheter overlies the left clavicle with distal tip indeterminate in position. Stable NG tube. EKG leads overlie the chest. CONCLUSION:Apparent central catheter overlies the left clavicle with distal tip indeterminate in position. No other change since the immediate prior film of today. Dictated by: Jono Isidro M.D. on 06/01/2020 at 12:02 PM
--- NOTE | 2020-06-01 14:05 | NUR ---
ABG Dr. Ortega notified of patients ABG results. No new orders received.
[2020-06-01] MEDS ORDERED: REMDESIVIR (EUA) 200 MG in NS 250ML 250 ML IV ONE (15:00)
[2020-06-01] MEDS ORDERED: OFIRMEV IV SCH (15:00)
[2020-06-01 15:12] LABS: ABG PCO2 31.9 mmHg (35.0-45.0); ABG PH 7.379 (7.350-7.450); BE(B) -5.5 mmol/L (-2.0-2.0); HCO3act 18.4 mmol/L (22.0-26.0); pO2 70.7 mmHg (80.0-100.0)
[2020-06-01] MEDS ORDERED: OFIRMEV 100 ML IV ONE (15:13)
--- NOTE | 2020-06-01 15:52 | NUR ---
Status Levophed increased to 4mcg/min per protocol for blood pressure of 84/59 and Propofol decreased to 10mcg/kg/min per protocol
--- NOTE | 2020-06-01 15:58 | PRM.PN ---
Subjective Subjective Date: Jun 01, 2020 Time: 07:00 Subjective Patient is seen and examined this morning is acute respiratory distress and very anxious. Patient is very hypoxic of 15L and is requiring bipap. Patient History: Asthma 18 CHILD Cerebrovascular disorder 33 FATHER, , Age:79 Congestive heart failure 32 MOTHER, , Age:83 Diabetes mellitus 32 MOTHER, , Age:83 FH: dementia 32 MOTHER, , Age:83 Hypertension 32 MOTHER, , Age:83 33 FATHER, , Age:79 No known health problems G8 BROTHER G8 BROTHER, , Age:40's - 50 G8 SISTER 19 CHILD Parkinson's disease MATERNAL GRANDFATHER, VTE VTE Risk Total Score: 2 VTE Risk Score VTE Risk: Score 0-1 = Low Risk (Aggressive mobilization; early ambulation; no VTE prophylaxis required) Score 2: Moderate Risk (Intermittent/Pneumatic Compression Device OR Lovenox/Heparin/Coumadin) Score 3-4: High Risk (Intermittent/Pneumatic Compression Device AND Lovenox/Heparin/Coumadin) Score > or =5: Highest Risk (Intermittent/Pneumatic Compression Device AND Lovenox/Heparin/Coumadin) Review of Systems Constitutional: Fever, Chills, Weakness, Malaise; No: Sweats Eyes: No: Pain, Vision change, Conjunctivae inflammation, Eyelid inflammation, Redness ENT: No: Ear pain, Ear discharge, Nose pain, Nose discharge, Nose congestion, Mouth pain, Mouth swelling, Throat pain, Throat swelling Respiratory: Cough, Shortness of breath, SOB with excertion, Wheezing, Wheezing ; No: Dry, Hemoptysis, Pleuritic Pain, Sputum Cardiovascular: No: Chest Pain, Palpitations, Orthopnea, Paroxysmal Noc. Dyspnea, Edema, Lt Headedness Gastrointestinal: Nausea, Vomiting, Abdominal Pain, Diarrhea; No: Constipation, Melena, Hematochezia Genitourinary: No Dysuria, No Frequency, No Incontinence, No Hematuria, No Retention, No Other Musculoskeletal: No: neck pain, shoulder pain, arm pain, back pain, hand pain, leg pain, foot pain Skin: No: Rash, Lesions, Jaundice, Bruising Neurological: Weakness; No: Numbness, Incoordination, Change in speech, Confusion, Seizures Allergies: Coded Allergies: clindamycin (Verified Allergy, Unknown, RED RASH, 01/02/16) Scheduled Hydroxychloroquine Sulfate (Plaquenil), 200 MG PO BID, (Reported) Levothyroxine Sodium (Levothyroxine Sodium), 1 TAB PO DAILY, (Reported) Prednisone (Prednisone), 5 MG PO DAILY, (Reported) Objective Vitals and I/O Vital Sign - Last 24 Hours 05/31/20 05/31/20 05/31/20 05/31/20 16:56 19:14 20:00 21:10 Temp 96.6 97.6 Pulse 74 73 73 Resp 20 20 20 B/P (MAP) 135/98 (110) 151/90 (110) Pulse Ox 92 92 92 O2 Delivery Nasal Canula Nasal Canula Nasal Cannula Nasal Cannula O2 Flow Rate 3.00 3.00 3.00 FiO2 32 05/31/20 06/01/20 06/01/20 06/01/20 23:15 03:25 04:01 04:14 Temp 97.7 Pulse 82 96 102 Resp 20 20 35 B/P (MAP) 140/82 (101) 140/82 160/101 (120) Pulse Ox 93 90 94 O2 Delivery Nasal Canula Bi Pap S/T O2 Flow Rate 6.00 FiO2 75 06/01/20 06/01/20 06/01/20 06/01/20 07:58 08:00 08:07 08:09 Temp 98.3 Pulse 96 139 139 Resp 24 25 25 B/P (MAP) 164/89 (114) Pulse Ox 86 94 95 O2 Delivery Bi Pap Bi-pap S/T Bi-pap FiO2 100 06/01/20 06/01/20 06/01/20 06/01/20 09:31 10:30 11:15 11:49 Pulse 85 88 91 Resp 16 B/P (MAP) 165/94 96/66 (76) 102/66 (78) 83/49 (60) FiO2 100 06/01/20 06/01/20 06/01/20 06/01/20 12:01 12:08 12:15 12:20 Pulse 87 85 90 88 Resp 16 B/P (MAP) 67/46 (53) 59/39 (46) 98/62 (74) 44/30 (35) 80/45 (57) Pulse Ox 94 FiO2 100 06/01/20 06/01/20 06/01/20 06/01/20 12:30 12:40 12:45 13:00 Pulse 88 97 88 91 B/P (MAP) 131/71 (91) 130/79 (96) 120/69 (86) 124/74 (91) 128/70 (89) 121/66 (84) Pulse Ox 97 06/01/20 06/01/20 06/01/20 06/01/20 13:15 13:21 13:30 13:40 Temp 102.0 102.0 102.0 Pulse 89 90 87 89 B/P (MAP) 129/74 (92) 119/76 (90) 124/71 (88) 108/67 (81) 129/74 (92) 123/73 (90) Pulse Ox 97 98 97 98 06/01/20 06/01/20 06/01/20 06/01/20 13:45 14:00 14:15 14:20 Temp 102.0 102.0 101.6 101.6 Pulse 94 96 97 104 B/P (MAP) 124/74 (91) 105/68 (80) 116/69 (85) 132/65 (87) 112/65 (81) 133/78 (96) Pulse Ox 98 97 97 96 06/01/20 06/01/20 06/01/20 06/01/20 14:30 14:40 14:45 15:00 Temp 101.4 101.4 101.1 101.1 Pulse 131 122 127 128 B/P (MAP) 119/77 (91) 108/82 (91) 113/76 (88) 112/72 (85) 121/76 (91) 114/74 (87) Pulse Ox 97 97 97 97 Intake and Output 06/01/20 07:00 Intake Total 460 ml Balance 460 ml General: Alert, Oriented X3, Cooperative, mild distress HEENT: Atraumatic, PERRLA, EOMI, Mucous membr. moist/pink Neck: Supple, No JVD Lungs: Normal air movement Heart: Regular rate, Normal S1, Normal S2, No murmurs Abdomen: Normal bowel sounds, Soft, No hepatospenomegaly, No masses, Other (abdominal pain and tenderness on palpation) Extremities: No clubbing, No cyanosis, No edema, Normal pulses, No tenderness/swelling Neuro: Normal gait, Normal speech, Strength at 5/5 X4 ext, Normal tone, Sensation intact, Cranial nerves 3-12 NL, Reflexes 2+ Psych/Mental Status: Mental status NL, Mood NL All Results(Lab/Rad) Laboratory Tests Test 05/31/20 05:10 White Blood Count 2.8 10^3/uL Red Blood Count 3.99 10^6/uL Hemoglobin 12.5 g/dL Hematocrit 37.2 % Mean Corpuscular Volume 93.2 fL Mean Corpuscular Hemoglobin 31.3 pg Mean Corpuscular Hemoglobin Concent 33.6 g/dL Red Cell Distribution Width 14.0 % Platelet Count 132 10^3/uL Mean Platelet Volume 10.2 fL Neutrophils (%) (Auto) 78.8 % Lymphocytes (%) (Auto) 12.0 % Monocytes (%) (Auto) 8.5 % Neutrophils # (Auto) 2.2 10^3/uL Lymphocytes # (Auto) 0.34 10^3/uL1 Monocytes # (Auto) 0.2 10^3/uL Absolute Immature Granulocyte (auto 0.02 10^3 u/L Absolute Eosinophils (auto) 0.0 10^3/uL Immature Granulocytes % 0.70 % Eosinophils % 0.0 % Basophils % 0.0 % Basophils # 0.0 10^3/uL Sodium Level 143 mmol/L Potassium Level 4.3 mmol/L Chloride Level 110.0 mmol/L Carbon Dioxide Level 20.6 mmol/L Anion Gap 16.7 Blood Urea Nitrogen 26 mg/dL Creatinine 1.23 mg/dL Estimated GFR () 52.9 Est GFR (CKD-EPI)(Non-Afr Omani) 43.7 BUN/Creatinine Ratio 21.0 Glucose Level 125 mg/dL Calcium Level 7.6 mg/dL Total Bilirubin 0.4 mg/dL Aspartate Amino Transf (AST/SGOT) 49 U/L Alanine Aminotransferase (ALT/SGPT) 21 U/L Alkaline Phosphatase 54 U/L C-Reactive Protein 0.89 mg/dL Total Protein 5.5 g/dL Albumin 2.4 g/dL Globulin 3.1 Albumin/Globulin Ratio 0.774 Current Medications Medications (Trade) Dose Ordered Sig/Ihsan Route PRN Reason Start Time Stop Time Status Last Admin Dose Admin Sodium Chloride 1,000 ml @ 1,200 mls/hr Q50M STAT IV 05/29/20 20:41 05/29/20 23:15 DC 05/29/20 21:32 Diphenoxylate HCl/ Atropine (Lomotil) 2 each STAT STAT PO 05/29/20 20:41 05/29/20 23:15 DC 05/29/20 21:32 Ondansetron HCl (Zofran) 4 mg STAT STAT IV 05/29/20 20:41 05/29/20 23:15 DC 05/29/20 21:32 Methylprednisolone Sodium Succinate (Solu-Medrol) 125 mg STK-MED ONCE .ROUTE 05/29/20 22:40 05/29/20 22:42 DC Ceftriaxone Sodium (Rocephin) 1,000 mg STK-MED ONCE .ROUTE 05/29/20 22:40 05/29/20 22:42 DC Aspirin (Aspirin Ec) 81 mg DAILY PO 05/30/20 09:00 06/29/20 08:59 05/31/20 09:00 Ondansetron HCl (Zofran) 4 mg Q4H PRN IV NAUSEA / VOMITING 05/29/20 23:00 06/28/20 22:59 Ceftriaxone Sodium 1000 mg/ Sodium Chloride 100 ml @ 100 mls/hr Q24HRS IV 05/29/20 23:00 06/28/20 22:59 05/30/20 22:21 Methylprednisolone Sodium Succinate (Solu-Medrol) 125 mg STAT STAT IV 05/29/20 22:43 05/29/20 22:48 DC 05/29/20 22:56 Methylprednisolone Sodium Succinate (Solu-Medrol) 60 mg Q8HR IV 05/30/20 06:00 05/30/20 08:27 DC 05/30/20 06:00 Diphenoxylate HCl/ Atropine (Lomotil) 2 each Q6H PRN PO diarrhea 05/29/20 23:00 06/28/20 22:59 Acetaminophen (Tylenol) 1,000 mg Q6HR PRN PO PAIN 1 - 3 05/30/20 00:30 06/29/20 00:29 05/31/20 12:37 Penicillin G Benzathine (Bicillin L-A) 1,200,000 unit STK-MED ONCE IM 05/30/20 00:37 05/30/20 00:40 DC Azithromycin 500 mg/Sodium Chloride 250 ml @ 175 mls/hr Q24HRS IV 05/30/20 09:00 06/29/20 08:59 05/31/20 09:00 Budesonide/ Formoterol Fumarate (Symbicort 160-4.5 Mcg Inhaler) 2 inh BID IH 05/30/20 09:00 06/29/20 08:59 05/31/20 08:32 Ipratropium [place] (Atrovent) 0.5 mg Q4 PRN IH WHEEZING 05/30/20 07:30 05/30/20 11:43 DC Albuterol Sulfate (Ventolin Hfa) 2 inh RTTID PRN IH SHORTNESS OF BREATH 05/30/20 07:30 06/29/20 07:29 Sodium Chloride 1,000 ml @ STK-MED ONCE .ROUTE 05/30/20 09:32 05/30/20 09:35 DC Enoxaparin Sodium (Lovenox) 40 mg Q24HRS SQ 05/30/20 14:30 06/29/20 14:29 05/31/20 15:43 Sodium Chloride 250 ml @ STK-MED ONCE IV 05/31/20 08:18 05/31/20 08:19 DC Course Sepsis Screening Results: Posi: POSITIVE Sepsis Qualifier/Stage: SEVERE SEPSIS RISK Duration or Total Time Spent w: 25 min Vitals & review Data Vital Sign - Last 24 Hours 05/30/20 05/30/20 05/30/20 05/31/20 20:00 20:00 23:59 00:00 Temp 97.5 97.6 Pulse 68 68 74 Resp 16 16 16 B/P (MAP) 128/95 (106) 134/78 (96) Pulse Ox 94 94 92 O2 Delivery Nasal Cannula Nasal Canula Nasal Cannula Nasal Canula O2 Flow Rate 3.00 3.00 3.00 3.00 05/31/20 05/31/20 05/31/20 05/31/20 05:03 07:12 08:00 09:10 Temp 97.6 96.3 96.2 Pulse 66 65 66 Resp 16 24 24 B/P (MAP) 146/82 (103) 148/100 (116) 140/94 (109) Pulse Ox 92 91 92 O2 Delivery Nasal Canula Nasal Canula Nasal Canula Nasal Cannula O2 Flow Rate 3.00 3.00 3.00 3.00 05/31/20 15:25 Pulse 66 Resp 24 Pulse Ox 92 O2 Delivery Nasal Cannula O2 Flow Rate 3.00 FiO2 32 Intake and Output 05/31/20 07:00 Intake Total 892 ml Output Total 700 ml Balance 192 ml Laboratory Tests Test 05/29/20 21:00 05/29/20 21:58 05/30/20 05:52 05/30/20 06:22 White Blood Count 2.9 10^3/uL 1.7 10^3/uL Red Blood Count 4.70 10^6/uL 4.19 10^6/uL Hemoglobin 14.5 g/dL 13.1 g/dL Hematocrit 42.6 % 38.1 % Mean Corpuscular Volume 90.6 fL 90.9 fL Mean Corpuscular Hemoglobin 30.9 pg 31.3 pg Mean Corpuscular Hemoglobin Concent 34.0 g/dL 34.4 g/dL Red Cell Distribution Width 14.1 % 14.0 % Platelet Count 153 10^3/uL 131 10^3/uL Mean Platelet Volume 10.2 fL 10.1 fL Neutrophils (%) (Auto) 76.2 % 85.5 % Lymphocytes (%) (Auto) 10.2 % 11.6 % Monocytes (%) (Auto) 11.9 % 2.9 % Neutrophils # (Auto) 2.2 10^3/uL 1.5 10^3/uL Lymphocytes # (Auto) 0.30 10^3/uL1 0.20 10^3/uL1 Monocytes # (Auto) 0.4 10^3/uL 0.1 10^3/uL Absolute Immature Granulocyte (auto 0.03 10^3 u/L 0 10^3 u/L Absolute Eosinophils (auto) 0.0 10^3/uL 0.0 10^3/uL Immature Granulocytes % 1.00 % 0.00 % Eosinophils % 0.0 % 0.0 % Basophils % 0.7 % 0.0 % Basophils # 0.0 10^3/uL 0.0 10^3/uL Prothrombin Time 20.6 SEC Prothrombin Time INR (Non-Therap) 2.0 Activated Partial Thromboplast Time 24.5 SEC D-Dimer 1.69 mg/L Sodium Level 136 mmol/L 139 mmol/L Potassium Level 3.9 mmol/L 4.1 mmol/L Chloride Level 102.0 mmol/L 107.0 mmol/L Carbon Dioxide Level 22.7 mmol/L 20.8 mmol/L Anion Gap 15.2 15.3 Blood Urea Nitrogen 23 mg/dL 21 mg/dL Creatinine 1.02 mg/dL 0.96 mg/dL Estimated GFR () 65.6 70.4 Est GFR (CKD-EPI)(Non-Afr Omani) 54.2 58.1 BUN/Creatinine Ratio 22.0 21.0 Glucose Level 85 mg/dL 122 mg/dL Lactic Acid Level 1.3 mmol/L Calcium Level 8.6 mg/dL 7.6 mg/dL Ferritin 860 ng/mL Total Bilirubin 0.8 mg/dL 0.5 mg/dL Aspartate Amino Transf (AST/SGOT) 59 U/L 46 U/L Alanine Aminotransferase (ALT/SGPT) 29 U/L 22 U/L Alkaline Phosphatase 73 U/L 58 U/L Lactate Dehydrogenase 409 U/L Total Creatine Kinase 112 U/L Creatine Kinase MB 1.5 ng/mL Troponin I 0.17 ng/mL C-Reactive Protein 1.63 mg/dL Pro-B-Type Natriuretic Peptide 1435 pg/mL Total Protein 6.8 g/dL 5.9 g/dL Albumin 3.2 g/dL 2.5 g/dL Globulin 3.6 3.4 Albumin/Globulin Ratio 0.888 0.735 Bedside Blood Gas Site (LAB) VBG O2 Saturation 52.7 Venous Blood pH 7.338 Venous Blood pCO2 at Patient Temp 38.7 MMHG Bedside Venous pO2 30.0 MMHG Venous Blood Base Excess -5.0 Blood Gas Total Hemoglobin 15.2 % Deoxyhemoglobin 46.7 % Carboxyhemoglobin 1.2 % Methemoglobin 0.1 % Total Oxygen Concentration 11.1 % Total Carbon Dioxide 21.5 mmol/L Bicarbonate 20.3 mmol/L Differential Total Cells Counted 100 #CELLS Segmented Neutrophils 88 % Lymphocytes 11 % Monocytes 1 % Differential Comment NORMAL Platelet Estimate ADEQUATE Platelet Morphology NORMAL Blood Morphology Comment NORMAL MORPHOLOGY Test 05/30/20 14:13 05/31/20 05:10 Troponin I 0.14 ng/mL White Blood Count 2.8 10^3/uL Red Blood Count 3.99 10^6/uL Hemoglobin 12.5 g/dL Hematocrit 37.2 % Mean Corpuscular Volume 93.2 fL Mean Corpuscular Hemoglobin 31.3 pg Mean Corpuscular Hemoglobin Concent 33.6 g/dL Red Cell Distribution Width 14.0 % Platelet Count 132 10^3/uL Mean Platelet Volume 10.2 fL Neutrophils (%) (Auto) 78.8 % Lymphocytes (%) (Auto) 12.0 % Monocytes (%) (Auto) 8.5 % Neutrophils # (Auto) 2.2 10^3/uL Lymphocytes # (Auto) 0.34 10^3/uL1 Monocytes # (Auto) 0.2 10^3/uL Absolute Immature Granulocyte (auto 0.02 10^3 u/L Absolute Eosinophils (auto) 0.0 10^3/uL Immature Granulocytes % 0.70 % Eosinophils % 0.0 % Basophils % 0.0 % Basophils # 0.0 10^3/uL Sodium Level 143 mmol/L Potassium Level 4.3 mmol/L Chloride Level 110.0 mmol/L Carbon Dioxide Level 20.6 mmol/L Anion Gap 16.7 Blood Urea Nitrogen 26 mg/dL Creatinine 1.23 mg/dL Estimated GFR () 52.9 Est GFR (CKD-EPI)(Non-Afr Omani) 43.7 BUN/Creatinine Ratio 21.0 Glucose Level 125 mg/dL Calcium Level 7.6 mg/dL Total Bilirubin 0.4 mg/dL Aspartate Amino Transf (AST/SGOT) 49 U/L Alanine Aminotransferase (ALT/SGPT) 21 U/L Alkaline Phosphatase 54 U/L C-Reactive Protein 0.89 mg/dL Total Protein 5.5 g/dL Albumin 2.4 g/dL Globulin 3.1 Albumin/Globulin Ratio 0.774 Current Medications Medications (Trade) Dose Ordered Sig/Ihsan PRN Reason Start Time Stop Time Status Last Admin Acetaminophen (Tylenol) 1,000 mg Q6HR PRN PAIN 1 - 3 05/30/20 00:30 06/29/20 00:29 05/31/20 12:37 Albuterol Sulfate (Ventolin Hfa) 2 inh RTTID PRN SHORTNESS OF BREATH 05/30/20 07:30 06/29/20 07:29 Aspirin (Aspirin Ec) 81 mg DAILY 05/30/20 09:00 06/29/20 08:59 05/31/20 09:00 Azithromycin 500 mg/Sodium Chloride 250 ml @ 175 mls/hr Q24HRS 05/30/20 09:00 06/29/20 08:59 05/31/20 09:00 Budesonide/ Formoterol Fumarate (Symbicort 160-4.5 Mcg Inhaler) 2 inh BID 05/30/20 09:00 06/29/20 08:59 05/31/20 08:32 Ceftriaxone Sodium 1000 mg/ Sodium Chloride 100 ml @ 100 mls/hr Q24HRS 05/29/20 23:00 06/28/20 22:59 05/30/20 22:21 Diphenoxylate HCl/ Atropine (Lomotil) 2 each Q6H PRN diarrhea 05/29/20 23:00 06/28/20 22:59 Enoxaparin Sodium (Lovenox) 40 mg Q24HRS 05/30/20 14:30 06/29/20 14:29 05/31/20 15:43 Ondansetron HCl (Zofran) 4 mg Q4H PRN NAUSEA / VOMITING 05/29/20 23:00 06/28/20 22:59 Sepsis Infection Criteria Pres: Suspected Infection LEVEL 1 SEPSIS INFECTION CRITE: ABX Therapy, Cough/Shortness of Breath, Flu- Pneumonia LEVEL 2-SIRS (LIST ALL THAT AP: RR>20/min, HR>90/min Cardiovascular Evidence: Not Assessed or None Hematologic Evidence: None/Not assessed Hepatic Evidence: None/Not assessed Metabolic Evidence: None/Not assessed Neurological Evidence: None/Not assessed Respiratory Evidence: Need for O2 to keep>90% Renal Evidence: None/Not assessed O2 Sat by Pulse Oximetry: 97 Oxygen Flow Rate: 6.00 Assessment/Plan Assessment/Plan Assessment/Plan WIll continue treatment with iv abx and remdesivir continue with steroid therapy and oxygen therapy BIpap did not improve patient respiratory failure. Planned to intubated patient and placed on ventilator Problems: (1) 2019 novel coronavirus disease (COVID-19) Status: Acute Assessment & Plan: worsening of symptoms - [facility] remdes[facility] treatment per protocol anticipate transfer for nitric oxide or ECHMO ICD Code: U07.1 - COVID-19 SNOMED: 556765301 (2) Elevated troponin I level Status: Acute ICD Code: R79.89 - Other specified abnormal findings of blood chemistry SNOMED: 414473520 (3) Rheumatoid arthritis Status: Chronic ICD Code: M06.9 - Rheumatoid arthritis, unspecified SNOMED: 47236444 (4) Diarrhea Status: Acute ICD Code: R19.7 - Diarrhea, unspecified SNOMED: 61597635 (5) Leukopenia Status: Acute ICD Code: D72.819 - Decreased white blood cell count, unspecified SNOMED: 20874503, 745477708 (6) Pneumonia Status: Acute ICD Code: J18.9 - Pneumonia, unspecified organism SNOMED: 119889578 (7) Elevated d-dimer Status: Acute ICD Code: R79.89 - Other specified abnormal findings of blood chemistry SNOMED: 048530955 (8) Gastroenteritis and colitis, viral Status: Acute ICD Code: A08.4 - Viral intestinal infection, unspecified SNOMED: 653550918 (9) Acute respiratory failure with hypoxemia Status: Acute ICD Code: J96.01 - Acute respiratory failure with hypoxia SNOMED: 383182960 (10) Sepsis without septic shock Status: Acute ICD Code: A41.9 - Sepsis, unspecified organism SNOMED: 844083526 Plan WIll continue treatment with iv abx and remdesivir continue with steroid therapy and oxygen therapy Monitor patient closely Intubation and Mech Vent Patient will benefit from transfer to a higher level of care for nitric oxide and or ECHMO Problem Qualifiers (1) Rheumatoid arthritis: Rheumatoid arthritis location: multiple sites (2) Diarrhea: Diarrhea type: infectious Qualified Codes: A09 - Infectious gastroenteritis and colitis, unspecified (3) Leukopenia: Leukopenia type: lymphocytopenia Qualified Codes: D72.810 - Lymphocytopenia RICH LEDEZMA MD Jun 01, 2020 15:58
[2020-06-01] MEDS: ZITHROMAX 500 MG in NS 250ML 250 ML IV SCH (16:34)
[2020-06-01] MEDS ORDERED: NS 100ML 100 ML IV ONE (17:45)
--- NOTE | 2020-06-01 17:55 | NUR ---
Report Report called to Gerardo CLARK at [facility].
[2020-06-01] MEDS ORDERED: LOPRESSER IVP ONE (18:00)
--- NOTE | 2020-06-01 18:18 | NUR ---
[facility] dispatch called to initiate transfer to [facility]. Dispatch states they will call me back with an ETA.
--- NOTE | 2020-06-01 19:20 | NUR ---
Propofol Propofol increased to 30mcg/kg/min per protocol. Pt attempting to pull at lines and get out of bed.
--- NOTE | 2020-06-01 19:25 | NUR ---
Report Report called to Jacquelin CLARK at [facility].
[2020-06-01] MEDS ORDERED: NS 1000ML 1,000 ML IV ONE (21:30)
--- NOTE | 2020-06-01 22:10 | NUR ---
TRANSFER/DC 2131 PT [facility] PT WAS TRANSFERRED VIA STRETCHER ON PORTABLE VENT UNCONSCIOUS VITAL SIGNS STABLE ON A LEVOPHED DRIP 15MCG/MIN.
[2020-06-02] MEDS ORDERED: REMDESIVIR (EUA) 100 MG in NS 250ML 250 ML IV SCH ×2 (09:00→11:00)
== END 2020-06-01 21:32 | disposition short-term general hospital (02) | DRG 871 ==
LOC: ER 20:29 → EDBD 20:29 → EDBEDREQSVC 22:41 → MS 22:43 → ICU 06-01 08:52
PROVIDERS: ADMIT Student in an Organized Health Care Education/Training Program; ATTEND Student in an Organized Health Care Education/Training Program
PROC: 5A09357 Assistance with Respiratory Ventilation, Less than 24 Consecutive Hours, Continuous Positive Airway Pressure (ICD-10-PCS; principal; 2020-06-01)
PROC: 0BH17EZ Insertion of Endotracheal Airway into Trachea, Via Natural or Artificial Opening (ICD-10-PCS; 2020-06-01)
PROC: 5A1935Z Respiratory Ventilation, Less than 24 Consecutive Hours (ICD-10-PCS; 2020-06-01)
DX: A41.9 Sepsis, unspecified organism (principal); J96.01 Acute respiratory failure with hypoxia; J18.9 Pneumonia, unspecified organism; U07.1 COVID-19; A09 Infectious gastroenteritis and colitis, unspecified; M06.9 Rheumatoid arthritis, unspecified; A08.4 Viral intestinal infection, unspecified; Z88.1 Allergy status to other antibiotic agents; Z79.899 Other long term (current) drug therapy; Z82.5 Family history of asthma and other chronic lower respiratory diseases; Z82.3 Family history of stroke; Z82.49 Family history of ischemic heart disease and other diseases of the circulatory system; Z83.3 Family history of diabetes mellitus; Z82.0 Family history of epilepsy and other diseases of the nervous system
CPT/HCPCS: 36415; 36600; 71045; 71046; 80053; 82550; 82553; 82728; 82803; 83605; 83615; 83880; 84484; 85025; 85379; 85610; 85730; 86140; 87040; 93005; 94002; 94640; 94660; 99285; G0378; J0131; J0330; J0456; J0561; J0696; J1100; J1650; J1940; J2060; J2405; J2930; J3010; J3490; J7030; J7040; J7050